=== PATIENT | female | born 1970 | race Two or more races ===

== ENCOUNTER 2021-05-05 15:28 | Outpatient (CLI) | payer OTHER | END 2021-05-05 15:38 | disposition home or self-care (01) | LOC: RAD 15:28 | PROVIDERS: ATTEND Internal Medicine Pulmonary Disease | DX: R06.09 Other forms of dyspnea (principal) ==

== ENCOUNTER 2022-03-10 08:31 | Outpatient (CLI) | payer OTHER | END 2022-03-10 08:42 | disposition home or self-care (01) | LOC: LAB 08:31 | PROVIDERS: ATTEND Obstetrics & Gynecology | DX: N92.5 Other specified irregular menstruation (principal); E03.8 Other specified hypothyroidism; D50.8 Other iron deficiency anemias; I10 Essential (primary) hypertension; E55.9 Vitamin D deficiency, unspecified ==